=== PATIENT | female | born 1945 | race Hispanic/Latino ===

== ENCOUNTER 2016-12-11 06:24 | Day surgery (SDC) | payer MEDICARE, OTHER ==
[2016-09-25 13:23] VITALS: BMI 21.5
[2016-12-11 06:59] VITALS: TEMP 98
[2016-12-11] MEDS ORDERED: Propofol 10 mg/ml Inj (20 ML) ONE (08:01)
[2016-12-11] MEDS ORDERED: Lactated Ringer's 1,000 ML IV SCH (08:40)
[2016-12-11 09:13] VITALS: O2SAT 99
[2016-12-11 09:30] VITALS: BP 137/76; PULSE 62; RESP 18
== END 2016-12-11 09:57 | disposition home or self-care (01) ==
LOC: ENDO 06:24
PROVIDERS: ATTEND Specialist
DX: Z12.11 Encounter for screening for malignant neoplasm of colon (principal); K57.30 Diverticulosis of large intestine without perforation or abscess without bleeding; K64.8 Other hemorrhoids; Z80.0 Family history of malignant neoplasm of digestive organs